=== PATIENT | male | born 1955 | race Caucasian/White ===

== ENCOUNTER 2017-03-07 17:35 | Emergency (ER) | payer OTHER, SELFPAY ==
[2017-03-07 18:09] VITALS: BP 143/88; PULSE 90; RESP 18; TEMP 36.8; O2SAT 97; BMI 29.2
[2017-03-07 23:28] LABS: Strep Scrn Group A (Rapid) Negative (Negative)
[2017-03-07 23:57] VITALS: BP 164/96; PULSE 92; RESP 20; O2SAT 98
--- NOTE | 2017-03-09 09:44 | PC.NURSE ---
All late documentation entered per down time procedure.
== END 2017-03-07 20:40 | disposition home or self-care (01) ==
LOC: ER 22:59
PROVIDERS: Emergency Provider Emergency Medicine; Family Provider Family Medicine; PCP Family Medicine
DX: J01.00 Acute maxillary sinusitis, unspecified (principal)
CPT/HCPCS: 87275; 87276; 87430; 99282

== ENCOUNTER 2025-02-16 21:05 | Emergency (ER) | payer MEDICARE, OTHER, SELFPAY ==
[2025-02-16 21:18] VITALS: BP 125/60; PULSE 89; RESP 18; TEMP 36.9; O2SAT 89; BMI 25.0
[2025-02-16 21:23] VITALS: BP 125/60; PULSE 87; RESP 18; TEMP 36.9; O2SAT 95
--- NOTE | 2025-02-16 21:25 | ED_ITS ---
Discharge Plan Disposition Patient Disposition: Home, Self-Care Prescriptions Prescriptions: New ondansetron 4 mg tablet,disintegrating 4 mg PO Q6H PRN (Reason: nausea and vomiting) Qty: 12 0RF Referrals Follow up/Referrals: Sydnie Strong [Primary Care Provider, Medical] - See instructions Activity Restrictions/Add. Instructions Additional Instructions/Restrictions: Your magnesium was mildly low today but was replaced here in the emergency department. He also have a mild kidney injury. I encourage you to follow-up with your primary care doctor regarding both of these for reassessment. I am prescribing Zofran to help with nausea and vomiting. Take this as prescribed. If you develop any new or worsening symptoms, or if you become concerned for your help for any reason, return to the emergency department for evaluation. Clinical Impressions Clinical Impression: Nausea & vomiting, Hypomagnesemia, LILA (acute kidney injury) Instructions Patient Instructions: DI for Diarrhea and Traveler's Diarrhea in Adults, DI for Diarrhea and Traveler's Diarrhea in Children, DI for Nausea in Adults, DI for Nausea in Children Print Language Print Language: Filipino Discharge ED Provider: Kike Linares General Adult HPI General Chief complaint: Nausea/Vomiting/Diarrhea Stated complaint: Fever,chills,vomiting,unsteady on feet Time Seen by Provider: 02/16/25 21:18 Mode of Arrival: Ambulatory Source of Information: Patient and Spouse Description of Symptoms (Recalled from ER Triage Doc. by RN): PT presents to the ED for evaluation of v/n/d x2 days. PT stated he had x1 episode of emesis, no diarrhea on this date but had episodes yesterday. PT stated his fever has been coming and going History of Present Illness HPI narrative: Isael Yost is a 69y joe with a past medical history of diabetes mellitus who presents to the emergency department for complaints of nausea and vomiting. Patient states that starting yesterday, he developed a fever with max temp of 101 ?F. Starting today, he complained of overall fatigue and then had 1 episode of nonbilious nonbloody vomiting prior to arrival. He states that he felt slightly dazed and lightheaded right after vomiting but has not had any recurrence since then. He denies any abdominal pain, dysuria or hematuria. He denies any chest pain or shortness of breath or cough. He denies any sick contacts. Related Data Previous Rx's ?Medication ?Instructions ?Recorded ondansetron 4 mg disintegrating 4 mg PO Q6H PRN nausea and 02/16/25 tablet vomiting #12 tabs Allergies Allergy/AdvReac Type Severity Reaction Status Date / Time NO KNOWN ALLERGIES Allergy Unknown Uncoded 03/09/17 09:42 [facility] Disclaimer: The information contained in this section may have been updated after the patient was seen, as this information can be updated by other users. Social History Smoking Status: Never smoker alcohol intake: never current occupational status: employed Travel in the last 8 weeks?: None ROS Obtained: Yes Systems reviewed as appropriate & no additional complaints except as documented Physical Exam General General appearance: alert and in no apparent distress Head Head exam: atraumatic Eye Eye exam: Present normal appearance ENT ENT exam: Present normal external ear exam Neck Neck exam: Present full ROM Chest Chest inspection: Present symmetric chest wall rise Respiratory Respiratory exam: Present normal lung sounds bilaterally; Absent respiratory distress, wheezes or stridor Cardiovascular Cardiovascular exam: Present regular rate and normal rhythm Abdominal Exam Abdominal exam: Present soft; Absent tenderness or guarding exam: Present deferred Extremities Exam Extremities exam: Present normal inspection Back Exam Back exam: Present normal inspection Neurological Exam Neurological exam: Present alert and oriented X3 Psychiatric Psychiatric exam: Present normal affect Skin Skin exam: Present warm and dry Medical Decision Making Medical Records Screening: Per USPSTF and CDC recommendations, given the prevalence of disease in our region, it is our hospital?s policy to screen for HIV and viral Hepatitis for all patients aged 18 and over and those with ongoing risk factors. Uriel Inquiry Pt receiving controlled substance: No Vital Signs: 02/16/25 21:18 02/16/25 21:23 02/16/25 21:39 Temperature 98.5 F 98.5 F Temperature Source Oral Oral Pulse Rate 87 82 Pulse Rate [Right] 89 Respiratory Rate 18 18 18 Blood Pressure 125/60 122/61 Blood Pressure [Right Arm] 125/60 Blood Pressure Mean [Right Arm] 81 02 Sat by Pulse Oximetry 89 L 95 96 Oxygen Delivery Method Room Air Room Air Room Air 02/16/25 22:27 02/16/25 22:54 Temperature 98.6 F Temperature Source Pulse Rate 76 71 Pulse Rate [Right] Respiratory Rate 18 18 Blood Pressure 108/60 L 115/60 Blood Pressure [Right Arm] Blood Pressure Mean [Right Arm] 02 Sat by Pulse Oximetry 98 Oxygen Delivery Method Room Air Room Air Lab Data Lab Results 02/16/25 21:12: Urine Color Yellow, Urine Appearance Clear, Urine pH 6.0, Ur Specific [place] 1.015, Urine Protein Negative, Urine Glucose (UA) 3+, Urine Ketones Negative, Urine Blood Negative, Urine Nitrate Negative, Urine Bilirubin Negative, Urine Urobilinogen 0.2, Ur Leukocyte Esterase Negative, Urine RBC 3-5, Urine WBC Occasional, Ur Squamous Epith Cells 3-5, Urine Bacteria 1+, Urine Mucus 1+ 02/16/25 21:23: WBC 10.1, RBC 3.99 L, Hgb 11.5 L, Hct 34.4 L, MCV 86.2, MCH 28.8, MCHC 33.4, RDW 12.6, Plt Count 306, MPV 9.4, Neut % (Auto) 60.3, Lymph % (Auto) 25.0, [place] % (Auto) 13.6 H, Eos % (Auto) 0.4, Baso % (Auto) 0.4, Neut # (Auto) 6.1, Lymph # (Auto) 2.5, [place] # (Auto) 1.4 H, Eos # (Auto) 0.0, Baso # (Auto) 0.0, Sodium 132 L, Potassium 4.1, Chloride 97 L, Carbon Dioxide 24, Anion Gap 15.1 H, BUN 18, Creatinine 1.30 H, Estimated Creat Clear 58, Estimated GFR 55 L, Est GFR ( Amer) 67, Glucose 131 H, Calcium 9.8, Magnesium 1.5 L, Total Bilirubin 0.5, AST 27, ALT 23, Alkaline Phosphatase 48, Total Protein 7.8, Albumin 4.9, Globulin 2.9, Albumin/Globulin Ratio 1.7, Lipase 90, HIV Ag/Ab Combo Qual Negative 02/16/25 21:26: SARS-CoV-2 (PCR) Not detected, Influenza A Untype (PCR) Not detected, Influenza Type B (PCR) Not detected 02/16/25 21:23 02/16/25 21:23 Orders (Tests/Meds): ED MEDICATIONS Generic Name Dose Route Start Last Admin Trade Name Freq PRN Reason Stop Dose Admin Magnesium Sulfate 2 gm in 50 mls @ 50 mls/hr 02/16/25 22:17 02/16/25 22:27 Magnesium Sulfate 2gm/50ml Premix IV 02/16/25 23:16 50 mls/hr ONCE ONE Administration Discontinued Medications Generic Name Dose Route Start Last Admin Trade Name Pily PRN Reason Stop Dose Admin Lactated Ringer's 1,000 mls @ 999 mls/hr 02/16/25 21:24 02/16/25 22:43 Lactated Ringer's 1000 Ml Bag IV 02/16/25 22:24 Infused .Q1H1M ONE Infusion Ondansetron HCl 4 mg 02/16/25 21:24 02/16/25 21:37 Ondansetron 4mg/2ml Vial IV 02/16/25 21:25 4 mg ONCE ONE Administration ORDERS Category Date Time Status CBC w/Auto Diff [Complete Blood Count Auto Diff] Stat Lab 02/16/25 21:23 Completed CMP [Comprehensive Metabolic Panel] Stat Lab 02/16/25 21:23 Completed HIV Combo Stat Lab 02/16/25 21:23 Completed Hepatitis C Ab Qual. W/ RFX Stat Lab 02/16/25 21:23 Received Lipase Stat Lab 02/16/25 21:23 Completed Magnesium Stat Lab 02/16/25 21:23 Completed Rapid PCR Covid and Flu A/B Stat Lab 02/16/25 21:26 Completed Urinalysis and Microscopic Stat Lab 02/16/25 21:12 Completed Medical Decision Narrative: Isael Yost is a 69y joe with a past medical history of diabetes mellitus who presents to the emergency department for complaints of nausea and vomiting. Patient states that starting yesterday, he developed a fever with max temp of 101 ?F. Starting today, he complained of overall fatigue and then had 1 episode of nonbilious nonbloody vomiting prior to arrival. He states that he felt slightly dazed and lightheaded right after vomiting but has not had any recurrence since then. He has not had any diarrhea. He denies any abdominal pain, dysuria or hematuria. He denies any chest pain or shortness of breath or cough. He denies any sick contacts. On arrival, patient is normotensive, heart rate within normal limits, maintaining appropriate oxygen saturation on room air. Afebrile. Physical exam, as stated above, revealed overall nontoxic- appearing male in no distress. He is alert and answering questions appropriately. Abdomen is soft, nontender nondistended. Cardiopulmonary exam is unremarkable. He does not have any peripheral edema. Differential diagnosis includes, but is not limited to: Viral gastritis, acute pancreatitis, dehydration, low concern for appendicitis or cholecystitis given lack of abdominal pain. Patient is afebrile here. Low concern for sepsis. I have low concern for any cardiac or stroke etiology as patient's dizziness/lightheadedness was transient and only associated with his vomiting. Will obtain hematologic labs and administer 1 L lactated ringer and 4 mg of IV Zofran. Laboratory studies are reassuring. Patient has no leukocytosis. Mild anemia with hemoglobin of 11.5, hematocrit 34.4. Mildly low sodium of 132 but electrolytes otherwise nonactionable. Mildly elevated anion gap 15.1. Creatinine very mildly elevated at 1.3 but BUN normal at 18. Magnesium mildly low at 1.5, will replace with 1.5 mg of IV magnesium sulfate. Liver enzymes bilirubin within norm limits. Lipase within normal limits. Urinalysis with negative nitrate and negative leukocyte esterase. Only occasional white blood cells. No evidence of infection. COVID and flu testing are negative. On reassessment, patient has remained in stable condition. He has not had any recurrence of his vomiting here. I do feel that he likely has a viral illness as a source of his symptoms. Recommended treatment with Zofran and continued hydration but do feel that he is appropriate for discharge at this time. Return precautions were given. All questions were answered. He demonstrated understanding and was in agreement this plan. He was then discharged from the emergency department in stable condition. Critical Care Critical Care Time Critical Care Time: No
[2025-02-16 21:28] LABS: Microscopic, Urine URINE MICROSCOPIC (MICROSCOPIC)
[2025-02-16 21:33] LABS: Hematocrit 34.4 % (42.0-52.0); Hemoglobin 11.5 g/dL (14.1-18.0); Immature Granulocytes % 0.3 %; Mean Corpuscular HGB Conc 33.4 g/dL (31.8-35.4); Mean Corpuscular Hemoglobin 28.8 pg (27.0-31.2); Mean Corpuscular Volume 86.2 fl (80-94); Nucleated Red Blood Cells % 0 %; Platelet Count 306 K/mm3 (142-424); Red Blood Count 3.99 M/mm3 (4.60-6.20); Red Cell Distribution Width-SD 40.0 fL; White Blood Count 10.1 K/mm3 (4.8-10.8)
[2025-02-16 21:33] LABS: Bilirubin,Urine Negative (Negative); Color,Urine YELLOW (Yellow); Glucose,Urine (UA) 3+ (Negative); Ketones,Urine Negative (Negative); Leukocyte Esterase,Urine Negative (Negative); PH,Urine 6.0 (5.0-8.5); Protein,Urine Negative (Negative); Specific Gravity, Urine 1.015 (1.005-1.030); Urobilinogen,Urine 0.2 EU/dl (0.2)
[2025-02-16] MEDS: ONDANSETRON 4MG/2ML VIAL 4 MG IV (21:37)
[2025-02-16] MEDS: LACTATED RINGERS 1000ML 1,000 ML 999 ML IV (21:37)
[2025-02-16 21:39] VITALS: BP 122/61; PULSE 82; RESP 18; O2SAT 96
--- OUTSIDE RECORDS SUMMARY | 2025-02-16 21:41 | XMS_ITS | Clinical Summary ---
Author Organization [facility] Address [address] [place] [address] Care Team Providers Care Software Manager Name Role Phone Sydnie Strong MD Primary Care Provider + Allergies No known active allergies Medications finasteride (PROSCAR) 5 MG tablet Take 5 mg by mouth Daily. Active meloxicam (MOBIC) 7.5 MG tablet Take 7.5 mg by mouth Daily. Active lisinopril (PRINIVIL,ZESTR IL) 10 MG tablet Take 10 mg by mouth Daily. Active hydroCHLOROthia zide (HYDRODIURIL) 25 MG tablet Take 25 mg by mouth Daily. Active atorvastatin (LIPITOR) 10 MG tablet Take 10 mg by mouth Daily. Active gabapentin (NEURONTIN) 100 MG capsule Take 100 mg by mouth Daily. Active metFORMIN (GLUCOPHAGE) 500 MG tablet Take by mouth 2 (Two) Times a Day With Meals. Active Empagliflozin (JARDIANCE PO) Take 5 mg by mouth Daily. Active insulin aspart prot-insulin aspart (novoLOG 70/30) (70-30) 100 UNIT/ML injection Inject 60 Units under the skin into the appropriate area as directed 2 (Two) Times a Day With Meals. Active Active Problems Problem Noted Date Diagnosed Date Anginal equivalent 12/01/2018 HTN (hypertension) 12/01/2018 Dyslipidemia 12/01/2018 DM (diabetes mellitus), type 2 12/01/2018 Abnormal stress echo 11/28/2018 Social History Tobacco Use Types Packs/Day Years Used Date Smoking Tobacco: Former Cigarettes Q uit: 1998 Smokeless Tobacco: Never Alcohol Use Standard Drinks/Week Comments Yes 1 (1 standard drink = 0.6 oz pur e alcohol) Abuse Screen Answer Date Recorded Unsafe at Home or Work/School Not on file Feels Threatened by Someone? Not on file 01/2023 Does Anyone Keep You from Co ntacting Others or Doint Things Outside the Home? Not on file 12/10/2022 Physical Sign of Abuse Present Not on file 1 Housing Stability Answer Date Recorded Current Living Arrangements Not on file 11/29 Potentially Unsafe Housing Conditions Not on megan e 12/10/2022 Family and Community Support Answer Fernandez e Recorded Help with Day-to-Day Activities Not on file 12/10/2022 Lonely or Isolated Not on file 12/10/2022 Employment Answer Date Recorded Do you want help finding or keeping work or a gaston b? Not on file 12/10/2022 Disabilities Answer Date Recorded Concentrating, Remembering, or Making Decisions Difficulty Not on file 12/10/2022 Doing Errands Independently Difficulty Not on fi le 12/10/2022 Education Answer Date Recorded Help with school or training? Not on file Preferred Language Not on file 12/10/2022 Sex and Gender Information Value Date Recorded Sex Assigned at Not on file Legal Sex Male 3:01 PM EDT Gender Identity Not on file Sexual Orientation Not on file Last Filed Vital Signs Vital Sign Reading Time Taken Comments Blood Pressure 111/78 12/01/2018 1:15 PM EDT Pulse 65 12/01/2018 1:15 PM EDT Temperature 36.2 C (97.1 F) 12/01/2018 9:55 AM EDT Respiratory Rate 18 12/01/2018 10:56 AM EDT Oxygen Saturation 98% 12/01/2018 1:15 PM EDT Inhaled Oxygen Concentration - - Weight 88.1 kg (194 lb 4.8 oz) 12/01/2018 9:55 A M EDT Height 172.7 cm (5' 8 ) 12/01/2018 9:55 AM EDT Body Mass Index 29.54 12/01/2018 9:55 AM EDT Plan of Treatment Health Maintenance Due Date Last Done Comments COLOGUARD 2002 COLON CANCER SCREENING 5 YEA R SIGMOIDOSCOPY 2002 COLONOSCOPY 2002 [address] CANCER SCREENING 2002 CT COLONOGRAPHY 2002 FECAL OCCULT BLOOD TEST 2002 FIT Testing (1 year) 2002 ZOSTER VACCINE (1 of 2) 07/11/2007 Pneumococcal Vaccine 50+ (2 of 2 - PCV) 09/23/2017 09/23/2016 ANNUAL PHYSICAL 09/04/2019 HEPATITIS C SCREENING 09/04/2019 AAA SCREEN ONCE 2022 INFLUENZA VACCINE 09/29/2024 01/31/2016, , 03/01/2012 COVID-19 Vaccine (1 - 2023-2 5 season) 2024 TDAP/TD VACCINES (2 - Td or Tdap) 01/30/2026 016 HEMOGLOBIN A1C Discontinued 12/01/2018 Procedures Procedure Name Priority Date/Time Associated Diagnosis Comments HEMOGLOBIN A1C STAT 12/01/2018 9:40 AM EDT from Last 3 Months or Most Recently Relevant to Health Maintenance Results * (ABNORMAL) Hemoglobin A1c (12/01/2018 9:40 AM EDT) Hemoglobin A1C 9.40(H) 4.80 - 5.60 % 12/01/2018 10:51 AM EDT [facility] Blood Line / Unknown 12/01/2018 9: 40 AM EDT 12/01/2018 10:17 AM EDT Narrative [facility] - 12/01/2018 10:51 AM EDT Hemoglobin A1C Ranges: Increased Risk for Diabetes 5.7% to 6.4% Diabetes >= 6.5% Diabetic Goal < 7.0% Maggy Vera APRN LAB BLOOD ORDERABLES Final Result [facility]
[address] [place] [address], from Last 3 Months or Most Recently Relevant to Health Maintenance Insurance [facility] Care Teams Software Manager Relationship Specialty Start Date End Date Sydnie Strong MD [address] [id number] PCP - General Family Medicine 12/01/18
[2025-02-16 21:45] LABS: Albumin Level 4.9 g/dl (3.5-5.0); Chloride 97 mmol/L (98-107); Potassium 4.1 mmoL/L (3.5-5.1); Sodium 132 mmol/L (136-145)
[2025-02-16 21:46] LABS: WBC,Urine Occasional #/hpf (0-3)
[2025-02-16 21:47] LABS: Bacteria,Urine 1+ /lpf; Mucus,Urine 1+ /lpf
[2025-02-16 21:48] LABS: Alanine Aminotransferase 23 U/L (12-78); Albumin/Globulin Ratio 1.7 (1.1-1.8); Alkaline Phosphatase 48 U/L (38-126); Anion Gap 15.1 mEq/L (5-15); Aspartate Amino Transferase 27 U/L (17-59); Bilirubin,Total 0.5 mg/dl (0.2-1.3); Blood Urea Nitrogen 18 mg/dl (9-20); Calcium 9.8 mg/dl (8.4-10.2); Carbon Dioxide 24 mmol/L (22.0-30.0); Creatinine Clearance Estimated 58 mL/min (50-200); Creatinine,Serum 1.30 mg/dl (0.66-1.25); Estimated Glomerular Filt Rate 55 ml/min (>60); GFR (African American) 67 ML/MIN (>60); Globulin 2.9 g/dL (1.3-3.2); Glucose 131 mg/dl (74-100); Lipase 90 U/L (23-300); Total Protein,Serum 7.8 g/dl (6.3-8.2)
[2025-02-16 21:57] LABS: Coronavirus 19, PCR Not Detected (NotDetected); Influenza A, PCR Not Detected (NotDetected); Influenza B, PCR Not Detected (NotDetected)
[2025-02-16 21:58] LABS: Magnesium 1.5 mg/dl (1.6-2.3)
[2025-02-16 22:27] VITALS: BP 108/60; PULSE 76; RESP 18; O2SAT 98
[2025-02-16] MEDS: MAGNESIUM SULFATE IN WATER 2 GM/50 ML PIGGYBACK IV (22:27)
[2025-02-16 22:54] VITALS: BP 115/60; PULSE 71; RESP 18; TEMP 37; O2SAT 96
[2025-02-16 23:03] LABS: Hepatitis C Ab Qual. W/ RFX NEGATIVE (Negative)
== END 2025-02-16 23:07 | disposition home or self-care (01) ==
PROVIDERS: Emergency Provider Student in an Organized Health Care Education/Training Program; PCP Family Medicine
DX: R11.2 Nausea with vomiting, unspecified (principal); E83.42 Hypomagnesemia; E87.1 Hypo-osmolality and hyponatremia; N17.9 Acute kidney failure, unspecified; R42 Dizziness and giddiness
CPT/HCPCS: 80053; 81001; 83690; 83735; 85025; 86803; 87389; 87636; 96361; 96365; 96375; 99284; 99285; J2405; J3475; J7120